=== PATIENT | female | born 1965 | race Caucasian/White ===

== ENCOUNTER → 2020-07-02 | Outpatient (CLI) | payer BC ==
--- NOTE | 2020-07-02 16:44 | RAD ---
EXAM: Thoracic spine, 3 views; right shoulder, 3 views. HISTORY: Pain. COMPARISON: None. FINDINGS: Thoracic spine: 3 views of the thoracic spine are obtained. There is no listhesis. The vertebral bodies are normal in height and the disc spaces are preserved. There is atelectasis and suspected chronic interval change. The heart is normal in size. Right shoulder: 3 views of the right shoulder obtained. There is no fracture, dislocation or subluxation. There is minimal acromioclavicular joint spurring. IMPRESSION: 1. No acute osseous finding. 2. Minimal right acromioclavicular joint osteoarthritis. Electronically signed by: Lavinia Staton MD (07/02/2020 4:41 PM) [id number]
== END ==
LOC: RAD 15:54
PROVIDERS: ATTEND Physician Assistant Medical
DX: M19.011 Primary osteoarthritis, right shoulder (principal); M77.8 Other enthesopathies, not elsewhere classified
CPT/HCPCS: 72072; 73030

== ENCOUNTER 2021-05-01 16:55 | Inpatient (IN) | payer BC ==
[~2021-05-01] VITALS: Ht 154.9 cm; Wt 78.3 kg
[2021-05-01] MEDS ORDERED: IV RINGERS SOLUTION,LACTATED 1,000 ML IV ONE (18:00)
[2021-05-01] MEDS ORDERED: KETOROLAC 30 MG/ML VIAL. IVP ONE (18:00)
[2021-05-01] MEDS ORDERED: ALBUTEROL SULFATE 8GM INHALER. INH ONE (18:00)
--- NOTE | 2021-05-01 18:00 | PHYS DOC ---
Past History Additional Past Medical Histor: over active bladder Past Surgical History: , Other Additional Past Surgical Histo: left knee surgery x 2 Alcohol Use: Occasionally General Adult EDM: Chief Complaint: COUGH HPI: HPI: ".. 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 I started with cough.. then got a fever.. I got tested .. on Wednesday.. I got results that said I was positive...".. " My has also tested positive...We both work at the [employer].. and we both did not want to get the vaccination.." Patient is a 55 year old female [employer] eye[employer] who presents with above hx and complaints fever, chills, malaise, nausea, vomiting, arthralgia, myalgia, tachycardia, coughing and increased dyspnea. Patient tested for Covid and had return of positive Covid test . is also tested positive for Covid. 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 Patient previously declined Covid vaccination. Patient now comes very dyspneic with any activity. Initially sats on room air in the 80s. Patient denies any recent travel. No specific ill contacts other than at work and her . Patient normally follows with [facility] for care. Patient denies any previous history of immunosuppression. Review of Systems: Review of Systems: Constitutional: Complains of fever or chills Eyes: Denies change in visual acuity HENT: Denies nasal congestion or sore throat Respiratory: Complains of a nonproductive cough and shortness of breath Cardiovascular: Denies chest pain or edema GI: Complains of abdominal pain, nausea, vomiting,. Denies bloody stools or diarrhea : Denies dysuria Musculoskeletal: Complains of generalized muscle and bone pain. Integument: Denies rash Neurologic: Denies headache, focal weakness or sensory changes Endocrine: Denies polyuria or polydipsia Lymphatic: Denies swollen glands Psychiatric: Denies depression or anxiety Family History: Family History: has recently been diagnosed with Covid Current Medications: Current Meds: See nursing for home meds Allergies: Allergies: Allergies Coded Allergies Type Severity Reaction Last Updated Verified Penicillins Allergy Unknown Rash 05/01/21 Yes Physical Exam: PE: Constitutional:in acute distress, non-toxic appearance. [] HENT: Normocephalic, atraumatic, bilateral external ears normal, oropharynx dry,, no oral exudates, nose folds are raised clear rhinorrhea Eyes: PERRLA, EOMI, conjunctiva normal, no discharge. [] Neck: Normal range of motion, no tenderness, supple, no stridor. [] Cardiovascular: Tachycardia heart rate regular rhythm, no murmur [] Lungs & Thorax: Bilateral breath sounds equal apex with scattered wheezing and rhonchi throughout on auscultation [] Abdomen: Bowel sounds hyperactive, soft, gastric tenderness, no masses, no pulsatile masses. Lower abdomen surgical scars. Skin: Warm, diaphoretic, no erythema, no rash. [] Back: No tenderness, no CVA tenderness. [] Extremities: Generalized muscle and bone tenderness, no cyanosis, no clubbing, ROM intact, no edema. No cording appreciated. Left knee surgical scars Neurologic: Alert and oriented X 3, moves all extremities on request, does have distal sensory,, no focal deficits noted. [] Psychologic: Affect anxious, judgement normal, mood normal. [] Current Patient Data: Vital Signs: Vital Signs Date Time Temp Pulse Resp B/P (MAP) Pulse Ox O2 Delivery O2 Flow Rate FiO2 05/01/21 17:16 98.7 84 34 104/50 86 Room Air EKG: EKG: My interpretation of EKG shows a sinus rhythm at 92 bpm. There is mild leftward axis. No findings of acute STEMI with contralateral changes. The time of this EKG was 1756 hrs. [] Radiology/Procedures: Radiology/Procedures: [address] [place] [id number] IMAGING REPORT Signed PATIENT: YANELI DOWNEY ACCOUNT: [id number] : 1965 LOCATION: ER AGE: 55 SEX: F EXAM STATUS: REG ER ORD. PHYSICIAN: MAHIN PRIDE DO REASON: SOB - COVID + PROCEDURE: CHEST AP ONLY INDICATION: Reason: SOB - COVID + / Spl. Instructions: / History: COMPARISON: None. FINDINGS: Single view of chest obtained. Hypoexpanded exam. Multifocal opacities throughout the bilateral lungs. Cardiac silhouette is mildly prominent but likely exaggerated by portable technique. IMPRESSION: * Hypoexpanded exam with bilateral pulmonic opacities. Given the patient's history this could be secondary to bilateral pneumonia. Edema could also have this radiographic appearance. Electronically signed by: Karley Karimi MD (05/01/2021 6:25 PM) [id number] DICTATED AND SIGNED BY: KARLEY KARIMI MD DATE: 05/01/21 1824 CC: MAHIN PRIDE DO; DINAH DOTSON MD; PATRICK QUACH ~MTH0 0 [][address] [address] IMAGING REPORT Signed PATIENT: YANELI DOWNEY ACCOUNT: [id number] : 1965 LOCATION: ER AGE: 55 SEX: F EXAM STATUS: REG ER ORD. PHYSICIAN: DINAH DOTSON MD REASON: OMNI 350,100ML IV.Dyspnea + COVID PROCEDURE: CT ANGIOGRAPHY CHEST Exam: CT of chest with contrast INDICATION: Dyspnea, Covid positive TECHNIQUE: Sequential axial images through the chest obtained following the administration of 100 mL of Omni 350 IV contrast. Sagittal and coronal reformatted images were reconstructed from the axial data and reviewed. Exposure: One or more of the following in the visualized dose reduction techniques were utilized for this examination: 1. Automated exposure control 2. Adjustment of the MA and/or KV according to patient size 3. Use of iterative of reconstructive technique Comparisons: Chest x-ray same day FINDINGS: Visualized portions of the thyroid are unremarkable. No enlarged mediastinal lymph nodes are identified. Heart size is normal. No pericardial effusion. Thoracic aorta has a normal course and caliber. Pulmonary artery is not enlarged. No pulmonary embolus identified within the main, lobar or proximal segmental pulmonary arteries. Evaluation distally limited secondary to contrast bolus timing. Airways are patent. Patchy areas of consolidation noted in lungs bilaterally. No pneumothorax. No pleural effusion or thickening. Spleen is enlarged measuring 15.3 cm in long axis. No suspicious osseous lesions or acute fractures. IMPRESSION: 1. No pulmonary embolus identified in the main, lobar or proximal segmental pulmonary arteries. 2. Extensive patchy bilateral groundglass opacity. Infectious or inflammatory in etiology. This consistent with history of Covid. Electronically signed by: Ruben Clifford MD (05/01/2021 7:07 PM) [facility] DICTATED AND SIGNED BY: RUBEN CLIFFORD MD DATE: 05/01/21 190 CC: DINAH DOTSON MD; PATRICK QUACH ~MTH0 0 Heart Score: C/O Chest Pain: Yes HEART Score for Chest Pain: HEART Score for Chest Pain Response (Comments) Value History Slighlty/Non-Suspicious 0 ECG Normal 0 Age >45 - < 65 1 Risk Factors 1 or 2 Risk Factors 1 Troponin < Normal Limit 0 Total 2 Risk Factors: Risk Factors: DM, Current or recent (<one month) smoker, HTN, HLP, family history of CAD, obesity. Risk Scores: Score 0 - 3: 2.5% MACE over next 6 weeks - Discharge Home Score 4 - 6: 20.3% MACE over next 6 weeks - Admit for Clinical Observation Score 7 - 10: 72.7% MACE over next 6 weeks - Early Invasive Strategies Course & Med Decision Making: Course & Med Decision Making Pertinent Labs and Imaging studies reviewed. (See chart for details) Discussed presentation, testing and tx plan with Dr. Ngo- advised to try other hospital for admission. 1800 hrs. Area hospitals declined the transfer. [facility] in [place] . stated they may have a floor bed in morning. [facility] system coordinator said there were no hospital beds in system available for transfer. Recalled Dr. Ngo - advised place her in ICU, Solumedrol 60 three times a day. Start the Remdesivir protocol. ( 1s.t 200mg the, 100mg daily x 4 day- I am not able to order this drug per hospital protocol.) Critical care 90 minutes Impression: 1. Respiratory failure-hypoxia 2. Bilateral Covid pneumonia 3. SIRS 4. Renal Insuf. Bun26/Creat. 1.2 5. Elevated LFT's AST lll, AL:t 64, Alk Phos 117 6. Elevated CRP 143. 3 7. Mild Hypokalemia 3.2 [] Dragon Disclaimer: Dragon Disclaimer: This electronic medical record was generated, in whole or in part, using a voice recognition dictation system. Departure Departure: Referrals: PATRICK QUACH (PCP) DINAH DOTSON MD May 01, 2021 17:59
[2021-05-01] MEDS ORDERED: ONDANSETRON PF 4 MG/2 ML VIAL. IVP ONE (18:15)
[2021-05-01] MEDS ORDERED: IOHEXOL 350 MG/ML 100 ML VIAL. IV ONE (18:15)
--- NOTE | 2021-05-01 18:27 | RAD ---
INDICATION: Reason: SOB - COVID + / Spl. Instructions: / History: COMPARISON: None. FINDINGS: Single view of chest obtained. Hypoexpanded exam. Multifocal opacities throughout the bilateral lungs. Cardiac silhouette is mildly prominent but likely exaggerated by portable technique. IMPRESSION: * Hypoexpanded exam with bilateral pulmonic opacities. Given the patient's history this could be sec ondary to bilateral pneumonia. Edema could also have this radiographic appearance. Electronically signed by: Jaime Hinkle MD (05/01/2021 6:25 PM) [id number]
[2021-05-01 18:28] LABS: BASO % 0 % (0-3); EOS % 0 % (0-3); HEMATOCRIT 44.4 % (36.0-47.0); HEMOGLOBIN 14.8 g/dL (12.0-15.5); LYMPH # 0.5 x10^3/uL (1.0-4.8); LYMPH % 6 % (24-48); MEAN CORPUSCULAR HEMOGLOBIN 29 pg (25-35); MEAN CORPUSCULAR HGB CONC 33 g/dL (31-37); MEAN CORPUSCULAR VOLUME 88 fL (79-100); MONO # 0.3 x10^3/uL (0.0-1.1); MONO % 4 % (0-9); NEUT # 6.8 x10^3uL (1.8-7.7); NEUT % 89 % (31-73); PLATELET COUNT 188 x10^3/uL (140-400); RED BLOOD COUNT 5.03 x10^6/uL (3.50-5.40); RED CELL DISTRIBUTION WIDTH 14.2 % (11.5-14.5); WHITE BLOOD COUNT 7.6 x10^3/uL (4.0-11.0)
[2021-05-01 18:30] LABS: CALCIUM 8.5 mg/dL (8.5-10.1); CREATININE 1.2 mg/dL (0.6-1.0); POTASSIUM 3.2 mmol/L (3.5-5.1)
[2021-05-01 18:36] LABS: ALBUMIN 3.2 g/dL (3.4-5.0); ALBUMIN/GLOBULIN RATIO 0.8 (1.0-1.7); TOTAL BILIRUBIN 0.5 mg/dL (0.2-1.0); TOTAL PROTEIN 7.3 g/dL (6.4-8.2)
[2021-05-01 18:41] LABS: C REACTIVE PROTEIN 143.3 mg/L (0-3.3)
--- NOTE | 2021-05-01 19:09 | RAD ---
Exam: CT of chest with contrast INDICATION: Dyspnea, Covid positive TECHNIQUE: Sequential axial images through the chest obtained following the administration of 100 mL of Omni 350 IV contrast. Sagittal and coronal reformatted images were reconstructed from the axial da ta and reviewed. Exposure: One or more of the following in the visualized dose reduction techniques were utilized for this examination: 1. Automated exposure control 2. Adjustment of the MA and/or KV according to patient size 3. Use of iterative of reconstructive technique Comparisons: Chest x-ray same day FINDINGS: Visualized portions of the thyroid are unremarkable. No enlarged mediastinal lymph nodes are identifi ed. Heart size is normal. No pericardial effusion. Thoracic aorta has a normal course and caliber. Pulmon nolan artery is not enlarged. No pulmonary embolus identified within the main, lobar or proximal segmen amita pulmonary arteries. Evaluation distally limited secondary to contrast bolus timing. Airways are patent. Patchy areas of consolidation noted in lungs bilaterally. No pneumothorax. No pleural effusion or thickening. Spleen is enlarged measuring 15.3 cm in long axis. No suspicious osseous lesions or acute fractures. IMPRESSION: 1. No pulmonary embolus identified in the main, lobar or proximal segmental pulmonary arteries. 2. Extensive patchy bilateral groundglass opacity. Infectious or inflammatory in etiology. This cons istent with history of Covid. Electronically signed by: Ruben Pillai MD (05/01/2021 7:07 PM) [facility]
[2021-05-01] MEDS ORDERED: ONDANSETRON PF 4 MG/2 ML VIAL. IVP PRN (20:30)
[2021-05-01] MEDS ORDERED: ALBUTEROL SULFATE 8GM INHALER. INH PRN (21:00)
[2021-05-01] MEDS ORDERED: HYDROcodon/IBUPROFEN 7.5/200MG 1 TAB TABLET PO ONE (22:45)
[2021-05-01] MEDS: methylPREDNISolone SOD SUCC PF 40 MG/ML VIAL. IV SCH (23:15)
[2021-05-01] MEDS ORDERED: REMDESIVIR LOAD in IV NORMAL SALINE 250ML TV IV ONE (23:30)
[2021-05-01 23:45] VITALS: BP 113/69
--- NOTE | 2021-05-01 23:47 | NUR ---
The patient, YANELI DOWNEY, 55 y/o, F admitted by FABIOLA JEFFRIES MD, was given written information regarding hospital policies, unit procedures and contact persons. Valuables were checked and logged. Call light at bedside.
[2021-05-01] MEDS: ACETAMINOPHEN 325 MG TABLET PO PRN (23:55)
[2021-05-02] VITALS (14 sets, daily range): BP systolic 91–111; BP diastolic 41–69
--- NOTE | 2021-05-02 00:41 | EKG ---
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
[2021-05-02] MEDS: ACETAMINOPHEN 325 MG TABLET PO PRN ×3 (05:38→14:34)
[2021-05-02 06:06] LABS: BASO % 0 % (0-3); EOS % 0 % (0-3); HEMATOCRIT 39.5 % (36.0-47.0); HEMOGLOBIN 13.2 g/dL (12.0-15.5); LYMPH # 0.3 x10^3/uL (1.0-4.8); LYMPH % 5 % (24-48); MEAN CORPUSCULAR HEMOGLOBIN 30 pg (25-35); MEAN CORPUSCULAR HGB CONC 34 g/dL (31-37); MEAN CORPUSCULAR VOLUME 89 fL (79-100); MONO # 0.2 x10^3/uL (0.0-1.1); MONO % 3 % (0-9); NEUT # 5.7 x10^3uL (1.8-7.7); NEUT % 92 % (31-73); PLATELET COUNT 178 x10^3/uL (140-400); RED BLOOD COUNT 4.45 x10^6/uL (3.50-5.40); RED CELL DISTRIBUTION WIDTH 14.2 % (11.5-14.5); WHITE BLOOD COUNT 6.2 x10^3/uL (4.0-11.0)
[2021-05-02 06:14] LABS: CALCIUM 8.3 mg/dL (8.5-10.1); CREATININE 0.9 mg/dL (0.6-1.0); GFR 65.5; POTASSIUM 3.8 mmol/L (3.5-5.1)
[2021-05-02] MEDS ORDERED: OXYB10TA7 PO (06:23)
[2021-05-02] MEDS ORDERED: OMEP40CA7 PO (06:23)
--- NOTE | 2021-05-02 06:27 | NUR ---
Pt was increased on her high flow nasal cannula to 11 liters. Pt sats from 88%-94%. Pt states, "I feel really good."
[2021-05-02] MEDS ORDERED: IPRATRPIUM/ALBUTEROL 0.5/2.5MG 3 ML NEBU. NEB SCH (08:00)
[2021-05-02] MEDS ORDERED: methylPREDNISolone SOD SUCC PF 40 MG/ML VIAL. IV ONE (09:00)
[2021-05-02] MEDS: IPRATROPIUM/ALBUTEROL 20/100mcg/INH INHALER. INH SCH ×2 (09:23→11:50)
[2021-05-02] MEDS: methylPREDNISolone SOD SUCC PF 40 MG/ML VIAL. IV SCH ×2 (09:24→14:34)
[2021-05-02] MEDS ORDERED: HYDROcodone/CHLORPHEN POLIS 5 ML SUS.ER.12H PO PRN (10:00)
--- NOTE | 2021-05-02 10:12 | HP ---
ADMIT DATE: 05/02/2021 ATTENDING PHYSICIAN: Dr. Ngo. CHIEF COMPLAINT: Cough and shortness of breath. HISTORY OF PRESENT ILLNESS: The patient is a 55-year-old female who had a positive COVID test on this past Wednesday, 4 days ago. She has had a low-grade fever, cough, congestion and shortness of breath. She and her have both tested positive. They both work at the [email or web address]. She states that they refused to get the vaccination for personal reasons. She has had increasing dyspnea. Her chest x-ray in the ED showed bilateral infiltrates that with a poor inspiratory effort. She is requiring significant amounts of the high-flow oxygen at about 12 liters to maintain a saturation above 90%. The patient had previously declined COVID vaccination. She is now quite symptomatic. Last night in the ED, we were trying to get her to a higher level of care, [facility] is full. We admitted her here for temporary reasons. She was started on Solu-Medrol and remdesivir. She had her first dose. I have spoken with the hospitalist at [facility]. We are waiting for an ICU bed to open up. PAST MEDICAL HISTORY: Significant for left knee surgery, emergency , overactive bladder. She is not diabetic. SOCIAL HISTORY: She is a nonsmoker, nondrinker. FAMILY HISTORY: Noncontributory. Both parents alive in their mid 70s and healthy. CURRENT MEDICATIONS: Include omeprazole, oxybutynin. ALLERGIES: SHE HAS ALLERGY TO PENICILLIN. REVIEW OF SYSTEMS: Significant for the cough, congestion, testing positive on this past Wednesday 5 days ago. She is a nonsmoker. She denied any hemoptysis. All other systems reviewed and turned to be negative. PHYSICAL EXAMINATION: GENERAL: When I saw her, this is a pleasant female, fairly alert, but mildly labored respirations. VITAL SIGNS: Showed a blood pressure of 111/69, respirations between 25 and 30, shallow, pulse is 83 and regular, temperature 98.3 degrees Fahrenheit, oxygen requirements 90%, maintained at 11 liters by high-flow nasal cannula. HEENT: Head is without trauma. Pupils are reactive. Oropharynx clear. NECK: Supple. No stridor. LUNGS: Coarse rhonchi bilaterally. CARDIOVASCULAR: Showed regular heart tones, tachycardic rhythm. No gallops. ABDOMEN: Soft, obese, protuberant. No organomegaly. Normoactive bowel sounds. EXTREMITIES: Show no cyanosis or edema. NEUROLOGIC: Focally intact. Speech is fluent. PERTINENT LABORATORY AND X-RAY STUDIES: Her hemoglobin on admission was 14.8 g/dL with a white count of 7600. Sodium was 140, potassium replaced to 3.8 mEq, nonfasting blood sugar 170 after administration of steroids. Creatinine 0.9 mg percent. Cardiac enzymes are negative for coronary ischemia. Chest x-ray and a CT angiogram were done. It showed no evidence of pulmonary emboli; however, extensive patchy bilateral ground-glass opacities consistent with COVID pneumonia. ASSESSMENT: 1. A 55-year-old female with acute respiratory failure with hypoxemia requiring high-flow oxygen to maintain saturations. 2. COVID-19 pneumonia bilaterally. 3. History of overactive bladder. 4. Gastroesophageal reflux disease. PLAN: 1. Admit to our ICU. 2. Remdesivir has been initiated. 3. Solu-Medrol. 4. Supplemental oxygen. 5. Tussionex p.r.n. cough. 6. I have been in contact with the hospitalist service at [facility]. They are full. As soon as one of their beds open up, we will plan transfer of this patient to [facility]. TIMA/BALJEET DR: Remy TID: [id number] CC: DANIELA ABBOTT
[2021-05-02] MEDS ORDERED: REMDESIVIR 100mg in NORMAL SALINE 250ML X 4 DAYS IV SCH (23:00)
--- NOTE | 2021-05-03 00:13 | DS ---
DATE OF DISCHARGE: 05/02/2021 ATTENDING PHYSICIAN: Dr. Ngo. FINAL DISCHARGE DIAGNOSES: 1. Bilateral COVID pneumonia. 2. Acute hypoxemic respiratory failure. 3. Symptomatic dyspnea. HISTORY AND PHYSICAL: The patient is a 55-year-old female, currently employed at the [employer]. Both she and her have been ill. She tested positive for COVID. She had a cough for the last 3 days. She presented with increasing shortness of breath to the Emergency Department. PHYSICAL EXAMINATION: Please see the dictated note. PERTINENT LABORATORY AND X-RAY STUDIES: Chemistry panel unremarkable. CBC within range. The chest x-ray showed bilateral infiltrates, poor inspiratory effort, fluffy atypical infiltrate consistent with viral pneumonia. COURSE IN HOSPITAL: The patient was admitted. We initially tried to get her to a higher level of care. She required high-dose oxygen anywhere between 11-15 liters of supplemental oxygen by high-flow nasal cannula to maintain oxygen saturations. She was initially admitted to our ICU. We did start her on Decadron and remdesivir. We called the [facility] and later in the afternoon on the second day of admission, they were able to take her in transfer. Therefore, she is transferred by ambulance to go to [facility] to their Intensive Care Unit for further treatment and evaluation. I spoke with Dr. Johnson, he was gracious and kind enough to accept the patient in transfer. She was discharged then from our hospital in stable condition with supplemental oxygen to be readmitted to a higher level of care at [facility]. EVELIN DR: Remy TID: [id number] CC: DANIELA ABBOTT
== END 2021-05-02 16:00 | disposition short-term general hospital (02) | DRG 177 ==
LOC: ER 16:55 → ICU 20:17
PROVIDERS: ADMIT Hospitalist; ATTEND Hospitalist
PROC: XW033E5 Introduction of Remdesivir Anti-infective into Peripheral Vein, Percutaneous Approach, New Technology Group 5 (ICD-10-PCS; principal; 2021-05-01)
PROC: 5A0935A Assistance with Respiratory Ventilation, Less than 24 Consecutive Hours, High Flow/Velocity Cannula (ICD-10-PCS; 2021-05-02)
DX: U07.1 COVID-19 (principal); J12.82 Pneumonia due to coronavirus disease 2019; J96.01 Acute respiratory failure with hypoxia; E87.6 Hypokalemia; K21.9 Gastro-esophageal reflux disease without esophagitis; R53.81 Other malaise; Z88.0 Allergy status to penicillin
CPT/HCPCS: 36415; 71045; 71275; 80048; 80053; 83880; 84484; 85025; 86140; 87040; 93005; 96361; 96374; 96375; G0238; J1885; J2405; J2920; J7050; J7120; Q9967; 99285-25

== ENCOUNTER → 2021-08-15 | Outpatient (CLI) | payer BC ==
[2021-05-02 15:00] VITALS: BP 93/61
[~2021-08-15] MED LIST: OMEP40CA7 PO; OXYB10TA7 PO
--- NOTE | 2021-08-15 13:45 | RAD ---
Site ID: [id number] EXAMINATION: XR CHEST 2V. HISTORY: 56 years Female Reason: 14 S/P COVID PNEUMONIA, STILL SOA AND COUGH, ON O2 AT NIGHT / Spl. COMPARISON: May 052020. Findings: There is slight interstitial marking prominence probably chronic with no focal airspace con solidation. The heart size is normal. There is no effusion or pneumothorax. The mediastinum and ronen appear unremarkable. Impression: No acute process. Electronically signed by: Curtis Boogie MD (08/15/2021 1:42 PM) [id number]
== END ==
LOC: RAD 07:56
PROVIDERS: ATTEND Internal Medicine Pulmonary Disease
DX: U07.1 COVID-19 (principal); R06.02 Shortness of breath
CPT/HCPCS: 71046

== ENCOUNTER → 2021-12-09 | Outpatient (CLI) | payer BC ==
[2021-05-02 15:00] VITALS: BP 93/61
--- NOTE | 2021-12-09 17:22 | CARD ---
MR#: [id number] Date of Study: 12/09/2021 Ordering Physician: VEDA GHOSH, Referring Physician: Juan BENSON: Aleksandr Blevins [facility] APPROVED REPORT EXAM: Two-dimensional and M-mode echocardiogram with Doppler and color Doppler. Other Information Quality : GoodHR: 82bpm Rhythm : NSR INDICATION Dyspnea 2D DIMENSIONS Left Atrium(2D)3.6 (1.6-4.0cm)IVSd0.8 (0.7-1.1cm) Aortic Root(2D)2.9 (2.0-3.7cm)LVDd4.6 (3.9-5.9cm) LVOT Diameter1.9 (1.8-2.4cm)PWd0.8 (0.7-1.1cm) LA Shbzsw50 (18-58mL)LVDs2.6 (2.5-4.0cm) FS (%) 44.5 %SV73.8 ml LVEF(%)75.8 (>50%) Aortic Valve AoV Peak Rodney.109.2cm/sAoV VTI16.4cm AO Peak GR.4.8mmHgLVOT Peak Rodney.74.9cm/s LVOT VTI 13.05cmAO Mean GR.3mmHg HONG (VMAX)1.07gv3QQZ (VTI)2.26cm2 Mitral Valve MV E Xfbfkrnk51.9cm/sMV E Peak Gr.3mmHg MV DECEL [id number] A Hrfgdjsd49.6cm/s MV E Mean Gr.2mmHgE/A Ratio0.6 Pulmonary Valve PV Peak Caenpgol65.7cm/sPV Peak Grad.3mmHg Tricuspid Valve TR P. Esxevlyu495jw/sTR Peak Gr.20mmHg Pulmonary Vein S1 Vetwrfax40.7cm/sD2 Virrvbua69.2cm/s LEFT VENTRICLE The left ventricle is normal size. There is normal left ventricular wall thickness. The left ventricu lar systolic function is normal and the ejection fraction is within normal range. EF 55% There is nor mal LV segmental wall motion. Transmitral Doppler flow pattern is Grade I-abnormal relaxation pattern . No left ventricle thrombus noted on this study. There is no ventricular septal defect visualized. T here is no left ventricular aneurysm. There is no mass noted in the left ventricle. RIGHT VENTRICLE The right ventricle is normal size. There is normal right ventricular wall thickness. The right ventr icular systolic function is normal. ATRIA The left atrium size is normal. The right atrium size is normal. The interatrial septum is intact wit h no evidence for an atrial septal defect or patent foramen ovale as noted on 2-D or Doppler imaging. AORTIC VALVE The aortic valve is normal in structure and function. Doppler and Color Flow revealed no significant aortic regurgitation. There is no significant aortic valvular stenosis. There is no aortic valvular v egetation. MITRAL VALVE The mitral valve is normal in structure and function. There is no evidence of mitral valve prolapse. There is no mitral valve stenosis. Doppler and Color-flow revealed trace mitral regurgitation. TRICUSPID VALVE The tricuspid valve is normal in structure and function. Doppler and Color Flow revealed no tricuspid valve regurgitation noted. The PA pressure was estimated at 25 mmHg. There is no tricuspid valve pro lapse or vegetation. There is no tricuspid valve stenosis. PULMONIC VALVE Doppler and Color Flow revealed no pulmonic valvular regurgitation. There is no pulmonic valvular aashish nosis. GREAT VESSELS The aortic root is normal in size. The ascending aorta is normal in size. The IVC is normal in size a nd collapses >50% with inspiration. PERICARDIAL EFFUSION There is no pleural effusion. There is no evidence of significant pericardial effusion. Critical Notification Critical Value: No <Conclusion> The left ventricular systolic function is normal and the ejection fraction is within normal range. EF 55% There is normal LV segmental wall motion. Signed by : Dawit Zurita, Electronically Approved : 12/09/2021 17:21:24
== END ==
LOC: ECHO 08:47
PROVIDERS: ATTEND Internal Medicine Cardiovascular Disease
DX: R06.02 Shortness of breath (principal)
CPT/HCPCS: 93306